=== PATIENT | female | born 1995 | race Caucasian/White ===

== ENCOUNTER 2018-02-13 03:56 | Emergency (ER) | payer MEDICAID, OTHER ==
[~2018-02-13] VITALS: Ht 170.2 cm; Wt 81.6 kg
[~2018-02-13 03:56] MED LIST: ACHD5005 PO; DCS100C PO; DOCU100C37 PO; FERR-57 PO; FRS325T PO; HYDR-2858 PO; HYDR99LO2 TP; IBP600T1 PO; IBUP-1773 PO; PREN1TAB71 PO; RT-ALBUINH IH
[2018-02-13] MEDS ORDERED: LACTATED RINGERS 1,000 ML IV ONE (04:32)
--- NOTE | 2018-02-13 04:41 | ED GI ---
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 NO BLACK/BLOODY/TARRY STOOLS NO FEVER NO DIZZINESS HAS NOT TAKEN ANYTHING FOR PAIN OR OTHER SYMPTOMS SEEN AT [facility] LAST WEEK FOR THIS PROBLEM PT STATES SHE WAS TOLD SHE "HAD INFECTION SOMEWHERE BUT THEY DIDN'T KNOW WHERE"- -STATES SHE HAD ELEVATED WBC COUNT, AND WAS GIVEN RX FOR UNKNOWN ANTIBIOTIC AND A PAIN PILL, BUT STATES SHE IS NOT TAKING THE PAIN PILL BECAUSE SHE HAS CHILDREN AT HOME. PT STATES SHE HAS NOT SOUGHT CARE AT ANY TIME FOR THIS PROBLEM LMP --02/04/18. NORMAL. ON OCP'S PCP: NONE PT STATES NO PCP, BUT HAS ESTABLISHED CARE AT [facility] Allergies and Home Medications Allergies Coded Allergies: Penicillins (Unverified Allergy, Unknown, 10/25/13) cefaclor (Unverified Allergy, Unknown, 10/25/13) Home Medications Ciprofloxacin HCl 500 Mg Tablet, 500 MG PO BID Prescribed by: DANIELLE GILMORE on 02/13/18653 Hyoscyamine Sulfate 0.125 Mg Tab.subl, 1-2 TAB SL Q4H Prescribed by: DANIELLE GILMORE on 02/13/18653 Lactobacillus Acidophilus 1 Each Capsule, 2 EACH PO QID Prescribed by: DANIELLE GILMORE on 02/13/18653 Metronidazole 500 Mg Tablet, 500 MG PO QID Prescribed by: DANIELLE GILMORE on 02/13/18653 Ondansetron 4 Mg Tab.rapdis, 4 MG PO Q4H Prescribed by: DANIELLE GILMORE on 02/13/18653 Patient Home Medication List Home Medication List Reviewed: Yes Review of Systems Review of Systems Constitutional: no symptoms reported Respiratory: No Symptoms Reported Cardiovascular: No Symptoms Reported Gastrointestinal: See HPI, Abdominal Pain, Diarrhea, Nausea, Poor Appetite, Poor Fluid Intake, Vomiting Genitourinary: No Symptoms Reported Musculoskeletal: no symptoms reported Skin: no symptoms reported Psychiatric/Neurological: No Symptoms Reported Endocrine: No Symptoms Reported Hematologic/Lymphatic: No Symptoms Reported Past Cxknjom-Ywbtto-Hmwayz Hx Patient Social History Alcohol Use: Rarely Uses Recreational Drug Use: Yes (THC, METH--DENIES IV USE) Drug of Choice: THC, METH, DENIES IV USE Smoking Status: Current Everyday Smoker (1 PPD) Type Used: Cigarettes (1 PPD) 2nd Hand Smoke Exposure: Yes Recent Foreign Travel: No Contact w/Someone Who Travel: No Recent Infectious Disease Expo: No Recent Hopitalizations: No Immunizations Up To Date Tetanus Booster (TDap): Less than 5yrs PED Vaccines UTD: Yes Seasonal Allergies Seasonal Allergies: No Past Medical History Surgeries: Yes ( X 1; BMT'S) Section, Ear Surgery Respiratory: Yes Asthma Cardiac: No Neurological: No : No Last Menstrual Period: Feb 10, 2018 Hx : 3 Hx Para: 4 (TWINSVAG DELIVERYC-SECTIONVBAC) Hx Total # of Abortions (Sp): 0 Reproductive Disorders: No Genitourinary: No Gastrointestinal: Yes Liver Disease/Jaundice, Irritable Bowel Musculoskeletal: Yes Chronic Back Pain Endocrine: No HEENT: Yes Chronic Ear Infection Loss of Vision: Denies Hearing Impairment: Denies Cancer: No Psychosocial: Yes (last suicide attempt "2 or 3 years ago") Anxiety, Suicide Attempts, Depression Integumentary: No Blood Disorders: No Adverse Reaction/Blood Tranf: No Family Medical History Cancer 19 MOTHER (MGM ) Chest pain 19 MOTHER Diabetes mellitus 19 MOTHER Family history: Allergy 19 MOTHER (PCN) Family history: Arthritis 19 FATHER 19 MOTHER Family history: Asthma 19 MOTHER Family history: Cardiovascular disease Family history: Diabetes mellitus 19 FATHER (MGM) 19 MOTHER Family history: Hypertension 19 FATHER 19 MOTHER History of - respiratory disease 19 MOTHER (asthma) Hypercholesterolemia 19 FATHER 19 MOTHER Kidney disease 19 FATHER (MGM) Psychotic disorder 19 MOTHER No Family History of: Abdominal aortic aneurysm Dougherty's disease Alcoholism Aphasia Cancer of colon Cataract Congenital heart disease Congestive heart failure Cystic fibrosis Dementia Dysphagia Family history: Alzheimer's disease Family history: Breast disease Family history: Coronary thrombosis Family history: Gastrointestinal disease Family history: Glaucoma Family history: Osteoporosis Family history: Thyroid disorder Headache Hearing loss Heart disease Hereditary disease History of - anemia History of - disorder History of drug abuse Human immunodeficiency virus (HIV) seropositivity Infertile Malignant neoplasm of lung Myocardial infarction Parkinson's disease Prostate cancer Seizure disorder Stroke Tuberculosis Visual impairment Physical Exam Vital Signs Vital Signs - First Documented 02/13/18 04:05 Temp 97.9 Pulse 56 Resp 18 B/P (MAP) 121/72 (88) Pulse Ox 100 O2 Delivery Room Air Capillary Refill : Less Than 3 Seconds Height/Weight/BMI Height: 5'7.00" Weight: 180lbs. oz. 81.676799pz; 34.30 BMI Method:Stated General Appearance: WD/WN, no apparent distress, other (WALKS UPRIGHT AND MOVES WITHOUT DIFFICULTY. TEXTING/PLAYING ON PHONE, THEN WHEN STAFF IN ROOM SHE STARTS HOLDING RIGHT FLANK/MID ABDOMEN; WALKS UPRIGHT AND MOVES QUICKLY WITHOUT DIFFICULTY. ) Neck: normal inspection Respiratory: normal breath sounds, no respiratory distress, no accessory muscle use Cardiovascular: regular rate, rhythm, no murmur Gastrointestinal: normal bowel sounds, soft, no organomegaly, no pulsatile mass ; No distended, No guarding, No rebound; tenderness (DIFFUSE TENDERNESS, BUT MOST TENDER ALL ACROSS LOWER ABDOMEN); No hernia, No mass Extremities: normal inspection, no pedal edema, no calf tenderness, normal capillary refill Back: CVA tenderness (R) Neurologic/Psychiatric: ambulance officer II-XII nml as tested, no motor/sensory deficits, alert, normal mood/affect, oriented x 3 Skin: normal color, warm/dry; No rash Progress/Results/Core Measures Results/Orders Lab Results Laboratory Tests Test 02/13/18 04:40 Range/Units White Blood Count 12.3 H 4.3-11.0 10^3/uL Red Blood Count 4.34 L 4.35-5.85 10^6/uL Hemoglobin 11.9 11.5-16.0 G/DL Hematocrit 36 35-52 % Mean Corpuscular Volume 83 80-99 FL Mean Corpuscular Hemoglobin 27 25-34 PG Mean Corpuscular Hemoglobin Concent 33 32-36 G/DL Red Cell Distribution Width 14.2 10.0-14.5 % Platelet Count 484 H 130-400 10^3/uL Mean Platelet Volume 9.7 7.4-10.4 FL Neutrophils (%) (Auto) 49 42-75 % Lymphocytes (%) (Auto) 41 12-44 % Monocytes (%) (Auto) 5 0-12 % Eosinophils (%) (Auto) 4 0-10 % Basophils (%) (Auto) 1 0-10 % Neutrophils # (Auto) 6.1 1.8-7.8 X 10^3 Lymphocytes # (Auto) 5.0 H 1.0-4.0 X 10^3 Monocytes # (Auto) 0.6 0.0-1.0 X 10^3 Eosinophils # (Auto) 0.5 H 0.0-0.3 10^3/uL Basophils # (Auto) 0.1 0.0-0.1 10^3/uL Urine Color YELLOW Urine Clarity CLEAR Urine pH 5 5-9 Urine Specific [place] 1.025 H 1.016-1.022 Urine Protein 1+ H NEGATIVE Urine Glucose (UA) NEGATIVE NEGATIVE Urine Ketones NEGATIVE NEGATIVE Urine Nitrite NEGATIVE NEGATIVE Urine Bilirubin NEGATIVE NEGATIVE Urine Urobilinogen NORMAL NORMAL MG/DL Urine Leukocyte Esterase NEGATIVE NEGATIVE Urine RBC (Auto) NEGATIVE NEGATIVE Urine RBC NONE /HPF Urine WBC RARE /HPF Urine Squamous Epithelial Cells 2-5 /HPF Urine Crystals NONE /LPF Urine Bacteria TRACE /HPF Urine Casts NONE /LPF Urine Mucus SMALL H /LPF Urine Culture Indicated NO Sodium Level 138 135-145 MMOL/L Potassium Level 3.5 L 3.6-5.0 MMOL/L Chloride Level 109 H 98-107 MMOL/L Carbon Dioxide Level 21 21-32 MMOL/L Anion Gap 8 5-14 MMOL/L Blood Urea Nitrogen 13 7-18 MG/DL Creatinine 0.66 0.60-1.30 MG/DL Estimat Glomerular Filtration Rate > 60 BUN/Creatinine Ratio 20 Glucose Level 93 70-105 MG/DL Calcium Level 9.6 8.5-10.1 MG/DL Corrected Calcium 9.4 8.5-10.1 MG/DL Magnesium Level 2.3 1.8-2.4 MG/DL Total Bilirubin 0.2 0.1-1.0 MG/DL Aspartate Amino Transf (AST/SGOT) 17 5-34 U/L Alanine Aminotransferase (ALT/SGPT) 20 0-55 U/L Alkaline Phosphatase 71 40-136 U/L Total Protein 7.1 6.4-8.2 GM/DL Albumin 4.3 3.2-4.5 GM/DL Amylase Level 62 25-125 U/L Lipase 40 8-78 U/L Urine Opiates Screen NEGATIVE NEGATIVE Urine Oxycodone Screen NEGATIVE NEGATIVE Urine Methadone Screen NEGATIVE NEGATIVE Urine Propoxyphene Screen NEGATIVE NEGATIVE Urine Barbiturates Screen NEGATIVE NEGATIVE Ur Tricyclic Antidepressants Screen NEGATIVE NEGATIVE Urine Phencyclidine Screen NEGATIVE NEGATIVE Urine Amphetamines Screen NEGATIVE NEGATIVE Urine Methamphetamines Screen NEGATIVE NEGATIVE Urine Benzodiazepines Screen NEGATIVE NEGATIVE Urine Cocaine Screen NEGATIVE NEGATIVE Urine Cannabinoids Screen NEGATIVE NEGATIVE My Orders Orders - DANIELLE GILMORE DO Saline Lock/Iv-Start (02/13/18 04:32) Urine Bedside (02/13/18 04:32) Amylase (02/13/18 04:32) Cbc With Automated Diff (02/13/18 04:32) Comprehensive Metabolic Panel (02/13/18 04:32) Drug Screen Stat (Urine) (02/13/18 04:32) Lipase (02/13/18 04:32) Magnesium (02/13/18 04:32) Ua Culture If Indicated (02/13/18 04:32) Saline Lock/Iv-Start (02/13/18 04:32) Lactated Ringers (Lr 1000 Ml Iv Solution (02/13/18 04:32) Ondansetron Injection (Zofran Injectio (02/13/18 04:45) Ct Abd/Pelv W (Appendicitis) (02/13/18 05:11) Abdomen/Kub 1view (02/13/18 05:11) Iohexol Injection (Omnipaque 350 Mg/Ml 1 (02/13/18 06:30) Sodium Chloride Flush (Catheter Flush Sy (02/13/18 06:30) Medications Given in ED Current Medications Medications Dose Ordered Sig/Jan Route Start Time Stop Time Status Last Admin Dose Admin Iohexol 100 ml ONCE ONCE IV 02/13/18 06:30 02/13/18 06:31 DC 02/13/18 06:19 100 ML Lactated Ringer's 1,000 ml @ 0 mls/hr Q0M ONCE IV 02/13/18 04:32 02/13/18 04:34 DC 02/13/18 04:49 0 MLS/HR Ondansetron HCl 4 mg ONCE ONCE IVP 02/13/18 04:45 02/13/18 04:46 DC 02/13/18 04:44 4 MG Sodium Chloride 10 ml NEEDED PRN IV 02/13/18 06:30 02/13/18 06:19 10 ML Vital Signs/I&O 02/13/18 04:05 Temp 97.9 Pulse 56 Resp 18 B/P (MAP) 121/72 (88) Pulse Ox 100 O2 Delivery Room Air Blood Pressure Mean: 88 Progress Progress Note : Progress Note UNEVENTFUL ER STAY NO VOMITING OR DIARRHEA DURING ER STAY Diagnostic Imaging Comments ABDOMEN XRAYS--NO ACUTE PROCESS, PENDING RADIOLOGIST REVIEW CT ABDOMEN/PELVIS--HEPATOMEGALY, MILD PERIPORTAL EDEMA, FLUID THROUGHOUT SMALL BOWEL WITH MILDLY PROMINENT MESENTERIC LYMPH NODES WHICH MAY REPRESENT MILD INFECTIOUS OR INFLAMMATORY ENTERITIS --PER [facility] VIA FAX AT 0635 Reviewed: Reviewed by Me Departure Impression Primary Impression: Mesenteric adenitis Additional Impression: Nausea vomiting and diarrhea Disposition: HOME, SELF-CARE Condition: Stable Departure-Patient Inst. Referrals: RAFI IRENE DO (PCP/Family) Primary Care Physician Patient Instructions: [id number], Mesenteric Lymphadenitis (DC) Add. Discharge Instructions: CLEAR LIQUIDS--WATER, BROTH, JELLO, GATORADE BRATS DIET --BANANAS, RICE, APPLESAUCE, TOAST, SALTINES FOLLOW UP WITH [facility] [place] THIS WEEK FOR FURTHER CARE All discharge instructions reviewed with patient and/or family. Voiced understanding. Scripts Ondansetron (Zofran Odt) 4 Mg Tab.rapdis 4 MG PO Q4H for Nausea/Vomiting, #10 TAB Prov: DANIELLE GILMORE DO 02/13/18 Hyoscyamine Sulfate (Levsin-Sl) 0.125 Mg Tab.subl 1-2 TAB SL Q4H for Abdominal Pain, #15 TAB Prov: DANIELLE GILMORE DO 02/13/18 Metronidazole (Flagyl) 500 Mg Tablet 500 MG PO QID for FOR INFECTION, #40 TAB Prov: DANIELLE GILMORE DO 02/13/18 Ciprofloxacin HCl (Cipro) 500 Mg Tablet 500 MG PO BID, #20 TAB Prov: DANIELLE GILMORE DO 02/13/18 Lactobacillus Acidophilus (Acidophilus) 1 Each Capsule 2 EACH PO QID, #80 CAP Prov: DANIELLE GILMORE DO 02/13/18 DANIELLE GILMORE DO Feb 13, 2018 04:41
[2018-02-13] MEDS ORDERED: ONDANSETRON 4 MG/2 ML (SDV) Z0FRAN IVP ONE (04:45)
[2018-02-13 04:53] LABS: BASOPHILS # (AUTO) 0.1 10^3/uL (0.0-0.1); BASOPHILS % (AUTO) 1 % (0-10); BILIRUBIN,URINE NEGATIVE (NEGATIVE); CLARITY,URINE CLEAR; COLOR,URINE YELLOW; EOSINOPHILS # (AUTO) 0.5 10^3/uL (0.0-0.3); EOSINOPHILS % (AUTO) 4 % (0-10); GLUCOSE, URINE (UA) NEGATIVE (NEGATIVE); HEMATOCRIT 36 % (35-52); HEMOGLOBIN 11.9 G/DL (11.5-16.0); KETONES,URINE NEGATIVE (NEGATIVE); LEUKOCYTE ESTERASE ,URINE NEGATIVE (NEGATIVE); LYMPHOCYTES % (AUTO) 41 % (12-44); MEAN CORPUSCULAR HEMOGLOBIN 27 PG (25-34); MEAN CORPUSCULAR HGB CONC 33 G/DL (32-36); MEAN CORPUSCULAR VOLUME 83 FL (80-99); MEAN PLATELET VOLUME 9.7 FL (7.4-10.4); MONOCYTES # (AUTO) 0.6 X 10^3 (0.0-1.0); MONOCYTES % (AUTO) 5 % (0-12); NEUTROPHILS # (AUTO) 6.1 X 10^3 (1.8-7.8); NEUTROPHILS % (AUTO) 49 % (42-75); NITRITE,URINE NEGATIVE (NEGATIVE); PH,URINE 5 (5-9); PLATELET COUNT 484 10^3/uL (130-400); PROTEIN,URINE 1+ (NEGATIVE); RED BLOOD COUNT 4.34 10^6/uL (4.35-5.85); RED CELL DISTRIBUTION WIDTH 14.2 % (10.0-14.5); UROBILINOGEN,URINE NORMAL (NORMAL); WHITE BLOOD COUNT 12.3 10^3/uL (4.3-11.0)
[2018-02-13 05:00] LABS: BACTERIA,URINE TRACE /HPF; WBC,URINE RARE /HPF
[2018-02-13 05:03] LABS: AMPHETAMINE SCREEN, URINE NEGATIVE (NEGATIVE); BARBITURATE SCREEN URINE NEGATIVE (NEGATIVE); BENZODIAZEPINES SCREEN URINE NEGATIVE (NEGATIVE); CANNABINOID SCREEN, URINE NEGATIVE (NEGATIVE); COCAINE SCREEN URINE NEGATIVE (NEGATIVE); METHADONE STAT NEGATIVE (NEGATIVE); METHAMPHETAMINE SCREEN URINE S NEGATIVE (NEGATIVE); OPIATE SCREEN URINE NEGATIVE (NEGATIVE); OXYCODONE STAT NEGATIVE (NEGATIVE); PROPOXYPHENE STAT NEGATIVE (NEGATIVE); TRICYCLIC ANTIDEPRESSANTS SCRE NEGATIVE (NEGATIVE)
[2018-02-13 05:15] LABS: ALANINE AMINOTRANSFERASE 20 U/L (0-55); ALBUMIN 4.3 GM/DL (3.2-4.5); ALKALINE PHOSPHATASE 71 U/L (40-136); AMYLASE 62 U/L (25-125); BILIRUBIN,TOTAL 0.2 MG/DL (0.1-1.0); BUN/CREATININE RATIO 20; CALCIUM 9.6 MG/DL (8.5-10.1); CARBON DIOXIDE 21 MMOL/L (21-32); CHLORIDE 109 MMOL/L (98-107); CREATININE SERUM 0.66 MG/DL (0.60-1.30); GFR ESTIMATED > 60; GLUCOSE 93 MG/DL (70-105); LIPASE 40 U/L (8-78); MAGNESIUM 2.3 MG/DL (1.8-2.4); POTASSIUM 3.5 MMOL/L (3.6-5.0); SODIUM 138 MMOL/L (135-145); TOTAL PROTEIN 7.1 GM/DL (6.4-8.2)
[2018-02-13] MEDS ORDERED: IOHEXOL 350 MG/ML 100 ML (OMNIPAQUE 350) VIAL IV ONE (06:30)
[2018-02-13] MEDS ORDERED: CATHETER FLUSH 10 ML SYR IV PRN (06:30)
--- NOTE | 2018-02-13 06:37 | Diagnostic Imaging Report ---
Clinical indication: Patient with nausea, vomiting, and diarrhea x6 weeks. Exam: KUB x-ray. Comparison: None. Findings: There are no focal calcifications overlying the expected regions/ pathways of both kidneys, ureters, and bladder regions. There is a nonobstructed bowel gas pattern. There is no evidence of abdominal free air. The visualized bones and extra abdominal soft tissues are unremarkable. Impression: There is no radiographic evidence for acute abdominal/ pelvic process or urinary tract stones. Dictated by: Dictated on workstation # [id number]
[2018-02-13] MEDS ORDERED: METR500T PO (06:54)
[2018-02-13] MEDS ORDERED: CIPR-225 PO (06:54)
[2018-02-13] MEDS ORDERED: LACT1CAP8 PO (06:54)
[2018-02-13] MEDS ORDERED: ONDA4TAB8 PO (06:54)
[2018-02-13] MEDS ORDERED: HYOS0.1283 SL (06:54)
[2018-02-13 06:59] VITALS: BP 114/58
--- NOTE | 2018-02-13 07:33 | Diagnostic Imaging Report ---
PROCEDURE: CT abdomen and pelvis with contrast, rule out appendicitis. TECHNIQUE: Multiple contiguous axial images were obtained through the abdomen and pelvis after the administration of intravenous contrast. INDICATION: Nausea, vomiting and diarrhea. No prior examinations are available for comparison. FINDINGS: Heart size is normal. Lung bases are clear. There is hepatomegaly. There is a heterogeneous appearance of liver with some periportal edema. There is no biliary ductal dilatation. There is no cholelithiasis. Spleen is normal. The pancreas and adrenal glands are unremarkable. Kidneys are normal in appearance. The bowel gas pattern is nonspecific. There is no free air. There is no ascites. There are no focal inflammatory changes. Appendix is normal. Bladder is normal. The osseous structures are unremarkable. IMPRESSION: Hepatomegaly and heterogeneous appearance of liver with some periportal edema. Recommend correlation for hepatitis. No other acute abnormality in the abdomen or pelvis. Dictated by: Dictated on workstation # [id number]
== END 2018-02-13 06:56 | disposition home or self-care (01) ==
LOC: EDUNIT# 03:56 → ER 03:57
DX: I88.0 Nonspecific mesenteric lymphadenitis (principal); R11.2 Nausea with vomiting, unspecified; R19.7 Diarrhea, unspecified; J45.909 Unspecified asthma, uncomplicated; F12.10 Cannabis abuse, uncomplicated; F15.10 Other stimulant abuse, uncomplicated; F41.9 Anxiety disorder, unspecified; F32.9 Major depressive disorder, single episode, unspecified; F17.210 Nicotine dependence, cigarettes, uncomplicated; Z98.890 Other specified postprocedural states; Z91.5 Personal history of self-harm; Z87.19 Personal history of other diseases of the digestive system; Z88.0 Allergy status to penicillin; Z88.8 Allergy status to other drugs, medicaments and biological substances; Z82.49 Family history of ischemic heart disease and other diseases of the circulatory system
CPT/HCPCS: 36415; 74018; 74177; 80053; 80306; 81000; 82150; 83690; 83735; 84703; 85025; 96361; 96374

== ENCOUNTER → 2019-01-02 | Outpatient (CLI) | payer MEDICAID ==
[~2019-01-02] MED LIST changes: +CIPR-225 PO; +HYOS0.1283 SL; +LACT1CAP8 PO; +METR500T PO; +ONDA4TAB8 PO
--- NOTE | 2019-01-02 11:51 | Diagnostic Imaging Report ---
INDICATION: survey. TECHNIQUE: Multiple real-time grayscale images were obtained over the gravid uterus. COMPARISON: There are no prior studies available for comparison. FINDINGS: There is a single live fetus in transverse presentation. heart motion was noted, and a date of 136 BPM was recorded. There were no abnormalities identified. However, the spine was not well visualized due to lie. I would recommend that a short-term (2-4 week) followup exam be performed for further study. The placenta is anterior, and there is no previa. The amniotic fluid volume is within normal limits. The growth parameters are fairly uniform. The cervix was not particularly well visualized but measures only 2.9 cm (normal 3 cm or less). Biometrical measurements are as follows: Biparietal 5.88 cm, age 24 weeks 1 days. Head circumference 22.59 cm, age 24 weeks 5 days. Abdominal circumference 20.52 cm, age 25 weeks 1 days. Femur length 4.12 cm, age 23 weeks 3 days. Sonographic estimate age: 24 weeks 3 days. Sonographic estimated date of delivery: 04/21/2019. Estimated Weight: 689 gm (+/- 101 gm). LMP percentile: 85%. heart rate: 136 beats per minute. number: 1 of 1. IMPRESSION: 1. There is a single live fetus of approximately 24 weeks 3 days gestation, +/-2 weeks. The EDC is April 21, 2019. 2. There were no abnormalities identified, but the spine was not well visualized. Recommendations as above. 3. The growth parameters are fairly uniform. 4. The length of the cervix is just below normal limits. Dictated by: Dictated on workstation # [id number]
== END ==
LOC: RAD 09:59
PROVIDERS: ATTEND Obstetrics & Gynecology
DX: Z36.89 Encounter for other specified antenatal screening (principal); Z3A.24 24 weeks gestation of pregnancy
CPT/HCPCS: 76805

== ENCOUNTER 2019-04-18 05:36 | Outpatient (CLI) | payer MEDICAID ==
[~2019-04-18] VITALS: Ht 170 cm; Wt 82.7 kg
[2019-04-18] MEDS ORDERED: FERR-84 PO (12:01)
[2019-04-18] MEDS ORDERED: PREN-8 PO (12:01)
== END 2019-04-18 12:31 | disposition home or self-care (01) ==
LOC: PREOP 05:36
PROVIDERS: ATTEND Obstetrics & Gynecology
DX: Z01.818 Encounter for other preprocedural examination (principal)

== ENCOUNTER 2019-04-23 06:04 | Inpatient (IN) | payer MEDICAID ==
[2019-04-23] VITALS (8 sets, daily range): BP systolic 104–137; BP diastolic 50–71
[~2019-04-23] VITALS: Ht 170.2 cm; Wt 83.0 kg
[~2019-04-23 06:04] MED LIST changes: +CITRIC ACID/SOB CIT (BICITRA) 30 ML UDC ONE; +FAMOTIDINE 20MG/2ML IV (PEPCID) ONE; +FERR-84 PO; +METOCLOPRAMIDE INJ 10 MG/2 ML (REGLAN) ONE; +PREN-8 PO; +WATER (STERILE) FOR INJECTION 20 ML ONE; +ceFAZolin INJECTION 1,000 MG ONE
[2019-04-23] MEDS ORDERED: LACTATED RINGERS 1,000 ML IV SCH ×2 (06:14)
[2019-04-23] MEDS ORDERED: CITRIC ACID/SOB CIT (BICITRA) 30 ML UDC PO ONE (06:15)
[2019-04-23] MEDS ORDERED: METOCLOPRAMIDE INJ 10 MG/2 ML (REGLAN) IV ONE (06:15)
[2019-04-23] MEDS ORDERED: FAMOTIDINE 20MG/2ML IV (PEPCID) IV ONE (06:15)
--- NOTE | 2019-04-23 06:15 | NUR ---
HUBERT GOODWIN presented to unit via ambulation from home/ED, accompanied by SO, for repeat csection. HUBERT GOODWIN weighed, gowned, voided, and to bed. EFHM and TOCO applied, VS taken. HUBERT GOODWIN oriented to bed controls, call light, TV, heat, and A/C controls.
[2019-04-23] MEDS ORDERED: ceFAZolin INJECTION 1,000 MG in WATER (STERILE) FOR INJECTION 10 ML IV ONE (06:30)
[2019-04-23 06:46] LABS: BILIRUBIN,URINE NEGATIVE (NEGATIVE); CLARITY,URINE CLEAR; COLOR,URINE YELLOW; GLUCOSE, URINE (UA) NEGATIVE (NEGATIVE); KETONES,URINE TRACE (NEGATIVE); LEUKOCYTE ESTERASE ,URINE NEGATIVE (NEGATIVE); NITRITE,URINE NEGATIVE (NEGATIVE); PH,URINE 6.5 (5-9); PROTEIN,URINE NEGATIVE (NEGATIVE)
[2019-04-23 06:52] LABS: BASOPHILS # (AUTO) 0.1 10^3/uL (0.0-0.1); BASOPHILS % (AUTO) 0 % (0-10); EOSINOPHILS # (AUTO) 0.5 10^3/uL (0.0-0.3); EOSINOPHILS % (AUTO) 3 % (0-10); HEMATOCRIT 33 % (35-52); HEMOGLOBIN 10.7 G/DL (11.5-16.0); LYMPHOCYTES # (AUTO) 3.2 X 10^3 (1.0-4.0); LYMPHOCYTES % (AUTO) 23 % (12-44); MEAN CORPUSCULAR HEMOGLOBIN 28 PG (25-34); MEAN CORPUSCULAR HGB CONC 33 G/DL (32-36); MEAN CORPUSCULAR VOLUME 86 FL (80-99); MEAN PLATELET VOLUME 10.8 FL (7.4-10.4); MONOCYTES # (AUTO) 0.9 X 10^3 (0.0-1.0); MONOCYTES % (AUTO) 6 % (0-12); NEUTROPHILS # (AUTO) 9.4 X 10^3 (1.8-7.8); NEUTROPHILS % (AUTO) 67 % (42-75); PLATELET COUNT 416 10^3/uL (130-400); RED CELL DISTRIBUTION WIDTH 13.5 % (10.0-14.5)
[2019-04-23 07:04] LABS: BACTERIA,URINE NEGATIVE /HPF; WBC,URINE 0-2 /HPF
[2019-04-23] MEDS ORDERED: FLU QUADRIvalent (5+ YOA) 2019-2020 (AFLURIA) 0.5 ML IM ONE (07:15)
[2019-04-23] MEDS ORDERED: OXYTOCIN/NORMAL SALINE 1,000 ML IV ONE (07:28)
--- NOTE | 2019-04-23 07:28 | NUR ---
REPORT TO SURGERY RN.
[2019-04-23] MEDS ORDERED: fentaNYL INJECTION 100 MCG/2 ML AMP ONE (07:34)
[2019-04-23] MEDS ORDERED: LIDOCAINE PF 2% 5 ML (XYLOCAINE) VIAL ONE (07:34)
[2019-04-23] MEDS ORDERED: BUPIVACAINE SPINAL 0.75% (SENSORCAINE) 2 ML AMP ONE (07:34)
[2019-04-23] MEDS ORDERED: CLINDAMYCIN 600 MG/50 ML IVPB 50 ML IV ONE ×2 (07:37→14:00)
--- NOTE | 2019-04-23 07:37 | NUR ---
DR BRANTLEY HERE.
--- NOTE | 2019-04-23 07:42 | Progress Note-Pre Operative ---
Pre-Operative Progress Note H&P Reviewed The H&P was reviewed, patient examined and no changes noted. Date Seen by Provider: Apr 23, 2019 Time Seen by Provider: 07:30 Date H&P Reviewed: Apr 23, 2019 Time H&P Reviewed: 07:35 Pre-Operative Diagnosis: PRevious section NICOLETTE BRANTLEY DO Apr 23, 2019 07:42 POS
[2019-04-23] MEDS ORDERED: KETOROLAC 30 MG/ML VIAL ONE (08:16)
[2019-04-23] MEDS ORDERED: BUPIVACAINE 0.5% 30 ML (SENSORCAINE) VIAL ONE (08:26)
[2019-04-23] MEDS ORDERED: OXYTOCIN/NORMAL SALINE 500 ML IV SCH (08:59)
[2019-04-23] MEDS ORDERED: TETANUS,DIPTH,PERTUSS P/F (BOOSTRIX) 0.5 ML VIAL IM SCH (09:00)
[2019-04-23] MEDS ORDERED: DOCUSATE SODIUM 100 MG (COLACE) CAP PO SCH (09:00)
[2019-04-23] MEDS ORDERED: morphine INJ 4 MG/ML 1 ML (VIAL/SYRINGE) IVP PRN (09:00)
[2019-04-23] MEDS ORDERED: MEASLES,MUMPS,RUBELLA 1 EA INJ SC SCH (09:00)
--- NOTE | 2019-04-23 09:03 | Cesarean Section Operative ---
Procedure Procedure Note Pre-operative Diagnosis: Sarah saenz a (25 /Para 5/ 3104, Gestational Age (wks)39 2/7 weeks with history of previous section Post-operative Diagnosis: same []4 Procedure: [] low transverse section Physician: NICOLETTE BRANTLYE Gift Shop Assistant: [] Estimated blood loss: mL Disposition: Findings: Viable [=male infant, Apgars 8/9, weight 6#6ounces intact placenta, 3vc, normal appearing uterus, tubes, and ovaries. Indications:Sarah saenz a (25 /Para / ,Gestational Age (wks)39 presenting for []. Procedure Details: The patient was seen in pre-op and the procedure was discussed with the patient in full, including the risks, benefits, and alternatives. All questions were answered. The patient was taken to the operating room and a time out was perf ormed, verifying patient and procedure. After spinal anesthesia was placed by our anesthesia colleagues, the patient was placed in the dorsal supine with leftward tilt for uterine displacement.~ Her abdomen was then prepped and draped in the typical sterile fashion. A Pfannenstiel skin incision was made using a scalpel and carried down through the underlying fascia. The fascia was incised in the midline and tented up using Alex clamps. On both the inferior and superior fascia side the rectus muscle was dissected off bluntly and sharply using Ritchie scissors. The peritoneum was identified and entered bluntly in the midline. This was then stretched laterally using manual strength. After entering the abdominal cavity and confirming lack of intraperitoneal adhesions, a large Ralph retractor was placed and the lower uterine segment was visualized. A bladder flap was created with the use of Metzenbaum scissors.~ A scalpel was utilized to make a low transverse uterine incision. Amniotomy was performed with an Allis clamp with return of clear fluid. The 's head was grasped and brought to the level of the incision. Fundal pressure was applied and was delivered without difficulty. Mouth and nares were suctioned with bulb suction. After the umbilical cord was clamped and cut, the infant was handed off to the pediatric staff. A sample of cord blood was then obtained. The placenta was delivered intact via uterine massage. The uterus was exteriorized and cleared of all clots and debris. The uterine incision was closed using 0 Vicryl in a running locked fashion. A second imbricated layer was placed using 0 Vicryl in a running fashion as well. The uterus was flexed forward and the posterior rectouterine space was inspected and cleared of all clots and debris. Again the hysterotomy site was examined and hemostasis was observed. The bilateral tubes and ovaries appeared normal. The uterus was placed back into the abdominal cavity and abdominal gutters were cleared of all clots and debris. A final check of the uterine incision showed it to be hemostatic. The peritoneum was closed using 3-0 Vicryl in a running fashion. The fascia was closed with 0 Vicryl in a running fashion. The subcutaneous space was hemostatic, and irrigated. The subcutaneous space was closed with 3-0 Vicryl in several single interrupted stitches. The skin was then closed using 4-0 Monocryl in a running subcuticular fashion. The skin edges were reapproximated together and were hemostatic. A pressure dressing was applied. All sponge, lap and needle counts were correct at the end of the procedure per nursing. Vitals - Labs Vital Signs - I&O Vital Signs Date Time Temp Pulse Resp B/P (MAP) Pulse Ox O2 Delivery O2 Flow Rate FiO2 04/23/19 07:00 36.8 81 18 99 Room Air Labs Laboratory Tests 04/23/19 06:18: Urine Color YELLOW, Urine Clarity CLEAR, Urine pH 6.5, Urine Specific [place] 1.015L, Urine Protein NEGATIVE, Urine Glucose (UA) NEGATIVE, Urine Ketones TRACEH, Urine Nitrite NEGATIVE, Urine Bilirubin NEGATIVE, Urine Urobilinogen 0.2, Urine Leukocyte Esterase NEGATIVE, Urine RBC (Auto) NEGATIVE, Urine RBC NONE, Urine WBC 0-2, Urine Squamous Epithelial Cells 2-5, Urine Crystals NONE, Urine Bacteria NEGATIVE, Urine Casts NONE, Urine Mucus NEGATIVE, Urine Culture Indicated NO 04/23/19 06:42: White Blood Count 14.0H, Red Blood Count 3.81L, Hemoglobin 10.7L, Hematocrit 33L , Mean Corpuscular Volume 86, Mean Corpuscular Hemoglobin 28, Mean Corpuscular Hemoglobin Concent 33, Red Cell Distribution Width 13.5, Platelet Count 416H, Mean Platelet Volume 10.8H, Neutrophils (%) (Auto) 67, Lymphocytes (%) (Auto) 23, Monocytes (%) (Auto) 6, Eosinophils (%) (Auto) 3, Basophils (%) (Auto) 0, Neutrophils # (Auto) 9.4H, Lymphocytes # (Auto) 3.2, Monocytes # (Auto) 0.9, Eosinophils # (Auto) 0.5H, Basophils # (Auto) 0.1 NICOLETTE BRANTLEY DO Apr 23, 2019 09:03 POS
[2019-04-23] MEDS: KETOROLAC 30 MG/ML VIAL IV SCH ×3 (09:34→22:38)
--- NOTE | 2019-04-23 10:00 | NUR ---
NO CHANGE IN ASSESSMENT, PLAN OF CARE EXPLAINED, NO QUESTIONS NOTED, VSS, PTS S/O AT SIDE, IN OPEN CRIB AT SIDE WILL MONITOR.
--- NOTE | 2019-04-23 10:20 | NUR ---
RT HERE AT PTS BEDSIDE.
[2019-04-23] MEDS ORDERED: RT-ALBUTEROL SULF 2.5 MG/3 ML PRE-MIX VIAL ONE (10:22)
[2019-04-23] MEDS: RT-ALBUTEROL SULF 2.5 MG/3 ML PRE-MIX VIAL INH PRN ×2 (10:31→22:56)
--- NOTE | 2019-04-23 11:30 | NUR ---
LIZZ-CARE COMPLETED, PAD AND PANTIES CHANGED, FFU/1 LT LOCHIA NOTED, PT REPOSITIONED IN BED, VSS, PT REQUESTING PAIN MEDS. SCHEDULED COLACE GIVEN AND OXYCODONE 5MG PO, SEE AUG.
[2019-04-23] MEDS: DOCUSATE SODIUM 100 MG (COLACE) CAP PO SCH ×2 (11:34→20:32)
[2019-04-23] MEDS ORDERED: IBUPROFEN 600 MG (MOTRIN) TAB PO SCH (12:00)
[2019-04-23] MEDS: ACETAMINOPHEN 500 MG TAB (TYLENOL) PO SCH ×2 (15:01→22:38)
[2019-04-23] MEDS: CATHETER FLUSH 10 ML SYR IV SCH ×2 (16:54→22:38)
[2019-04-23] MEDS: FERROUS SULF 325 MG (IRON) TAB PO SCH (18:07)
[2019-04-24 00:35] VITALS: BP 124/68
[2019-04-24 03:55] VITALS: BP 126/71
[2019-04-24] MEDS: KETOROLAC 30 MG/ML VIAL IV SCH (03:55)
[2019-04-24] MEDS: CATHETER FLUSH 10 ML SYR IV SCH (03:55)
[2019-04-24] MEDS ORDERED: MILK OF MAGNESIA 400 MG/5 ML 30 ML UDC PO PRN (05:00)
[2019-04-24 06:12] LABS: BASOPHILS % (AUTO) 0 % (0-10); EOSINOPHILS # (AUTO) 0.5 10^3/uL (0.0-0.3); EOSINOPHILS % (AUTO) 3 % (0-10); HEMATOCRIT 30 % (35-52); HEMOGLOBIN 9.6 G/DL (11.5-16.0); LYMPHOCYTES # (AUTO) 3.2 X 10^3 (1.0-4.0); LYMPHOCYTES % (AUTO) 20 % (12-44); MEAN CORPUSCULAR HEMOGLOBIN 28 PG (25-34); MEAN CORPUSCULAR HGB CONC 33 G/DL (32-36); MEAN CORPUSCULAR VOLUME 87 FL (80-99); MEAN PLATELET VOLUME 10.4 FL (7.4-10.4); MONOCYTES # (AUTO) 1.2 X 10^3 (0.0-1.0); MONOCYTES % (AUTO) 7 % (0-12); NEUTROPHILS # (AUTO) 11.1 X 10^3 (1.8-7.8); NEUTROPHILS % (AUTO) 69 % (42-75); PLATELET COUNT 391 10^3/uL (130-400); RED CELL DISTRIBUTION WIDTH 13.2 % (10.0-14.5)
[2019-04-24] MEDS: ACETAMINOPHEN 500 MG TAB (TYLENOL) PO SCH ×3 (06:29→21:47)
--- NOTE | 2019-04-24 07:08 | Anesthesia-Regional Post-Op ---
Regional Patient Condition Mental Status: Alert, Oriented x3 Circulation: Same as Pre-Op Headache: Absent Sensation: Full Recovery Motor Block: Absent Post Op Complications Complications None Follow Up Care/Instructions Patient Instructions None needed. Anesthesia/Patient Condition Patient is doing well, no complaints, stable vital signs, no apparent adverse anesthesia problems. No complications reported per nursing. D/C home per [facility] Criteria: No RENEE THOMPSON CRNA Apr 24, 2019 07:08 POS
--- NOTE | 2019-04-24 08:36 | NUR ---
PT IN BED, RESTING. THIS RN TO BEDSIDE, SELF INTRODUCED, POC CARE DISCUSSED; PT VERBALIZES UNDERSTANDING AND DENIES ANY NEEDS OR QUESTIONS AT THIS TIME. S/O AT THE BEDSIDE. CALL LIGHT WITHIN REACH.
[2019-04-24 10:08] VITALS: BP 114/59
[2019-04-24] MEDS: FERROUS SULF 325 MG (IRON) TAB PO SCH ×2 (10:09→18:00)
[2019-04-24] MEDS: DOCUSATE SODIUM 100 MG (COLACE) CAP PO SCH ×2 (10:10→19:49)
[2019-04-24] MEDS: IBUPROFEN 600 MG (MOTRIN) TAB PO SCH ×3 (10:10→21:47)
--- NOTE | 2019-04-24 10:15 | NUR ---
PT IN BED, HOLDING . MEDS GIVEN PO; SEE EMAR FOR FURTHER. VS OBTAINED. INITIAL SHIFT ASSESSMENT COMPLETED; SEE INTERVENTION FOR FURTHER. S/O AT THE BEDSIDE. PT DENIES ANY QUESTIONS OR NEEDS AT THIS TIME.
--- NOTE | 2019-04-24 12:07 | NUR ---
DR. BRANTLEY TO PT'S BEDSIDE.
[2019-04-24 16:34] VITALS: BP 121/59
[2019-04-24 21:47] VITALS: BP 137/68
[2019-04-25 04:56] VITALS: BP 116/72
[2019-04-25] MEDS: IBUPROFEN 600 MG (MOTRIN) TAB PO SCH ×2 (04:56→11:11)
[2019-04-25 08:30] VITALS: BP 123/67
--- NOTE | 2019-04-25 08:30 | NUR ---
A.M. ASSESSMENT COMPLETED. VSS.
--- NOTE | 2019-04-25 09:04 | Postpartum Progress Note ---
Post Op Patient seen and examined on POD 1 but no note written Post-operative Day #2 s/p RLTCS Subjective: Patient is without complaints. Ambulating, voiding after parra removed. Tolerating a regular diet without nausea or vomiting. Normal lochia. Pain is well controlled with oral pain medications. Passing flatus. [] feeding. [] Objective: Laboratory Tests Test 04/23/19 06:18 04/23/19 06:42 04/24/19 06:00 Range/Units Urine Color YELLOW Urine Clarity CLEAR Urine pH 6.5 5-9 Urine Specific [place] 1.015 L 1.016-1.022 Urine Protein NEGATIVE NEGATIVE Urine Glucose (UA) NEGATIVE NEGATIVE Urine Ketones TRACE H NEGATIVE Urine Nitrite NEGATIVE NEGATIVE Urine Bilirubin NEGATIVE NEGATIVE Urine Urobilinogen 0.2 < = 1.0 MG/DL Urine Leukocyte Esterase NEGATIVE NEGATIVE Urine RBC (Auto) NEGATIVE NEGATIVE Urine RBC NONE /HPF Urine WBC 0-2 /HPF Urine Squamous Epithelial Cells 2-5 /HPF Urine Crystals NONE /LPF Urine Bacteria NEGATIVE /HPF Urine Casts NONE /LPF Urine Mucus NEGATIVE /LPF Urine Culture Indicated NO White Blood Count 14.0 H 16.0 H 4.3-11.0 10^3/uL Red Blood Count 3.81 L 3.38 L 4.35-5.85 10^6/uL Hemoglobin 10.7 L 9.6 L 11.5-16.0 G/DL Hematocrit 33 L 30 L 35-52 % Mean Corpuscular Volume 86 87 80-99 FL Mean Corpuscular Hemoglobin 28 28 25-34 PG Mean Corpuscular Hemoglobin Concent 33 33 32-36 G/DL Red Cell Distribution Width 13.5 13.2 10.0-14.5 % Platelet Count 416 H 391 130-400 10^3/uL Mean Platelet Volume 10.8 H 10.4 7.4-10.4 FL Neutrophils (%) (Auto) 67 69 42-75 % Lymphocytes (%) (Auto) 23 20 12-44 % Monocytes (%) (Auto) 6 7 0-12 % Eosinophils (%) (Auto) 3 3 0-10 % Basophils (%) (Auto) 0 0 0-10 % Neutrophils # (Auto) 9.4 H 11.1 H 1.8-7.8 X 10^3 Lymphocytes # (Auto) 3.2 3.2 1.0-4.0 X 10^3 Monocytes # (Auto) 0.9 1.2 H 0.0-1.0 X 10^3 Eosinophils # (Auto) 0.5 H 0.5 H 0.0-0.3 10^3/uL Basophils # (Auto) 0.1 0.0 0.0-0.1 10^3/uL VS - Last 72 Hours, by Label POS 04/23/19 04/23/19 04/23/19 04/23/19 07:00 07:30 09:00 09:00 Temp 36.8 36.3 36.5 Pulse 81 Resp 18 20 B/P (MAP) 113/50 (71) Pulse Ox 99 99 O2 Delivery Room Air Room Air Room Air 04/23/19 04/23/19 04/23/19 04/23/19 09:17 09:17 09:38 09:38 Temp 36.5 36.4 Resp 20 20 B/P (MAP) 107/63 (78) 107/60 (76) Pulse Ox 99 100 O2 Delivery Room Air Room Air Room Air Room Air 04/23/19 04/23/19 04/23/19 04/23/19 09:47 09:47 10:30 11:06 Temp 36.2 36.8 Pulse 92 Resp 20 20 B/P (MAP) 104/71 (82) 137/65 (89) Pulse Ox 100 98 99 O2 Delivery Room Air Room Air Room Air Room Air 04/23/19 04/23/19 04/23/19 04/23/19 16:57 20:32 20:32 22:56 Temp 37.8 37.1 Pulse 67 79 Resp 16 18 B/P (MAP) 126/69 (88) 118/68 (85) Pulse Ox 98 99 100 O2 Delivery Room Air Room Air Room Air Room Air 04/24/19 04/24/19 04/24/19 04/24/19 00:35 03:55 10:08 16:34 Temp 37.5 37.0 37.6 37.2 Pulse 89 84 77 84 Resp 18 18 18 18 B/P (MAP) 124/68 (86) 126/71 (89) 114/59 (77) 121/59 (79) Pulse Ox 97 96 97 96 O2 Delivery Room Air Room Air Room Air Room Air 11/04/24/19 04/24/19 04/25/19 18:24 19:49 21:47 04:56 Temp 36.8 36.4 Pulse 84 71 Resp 18 16 B/P (MAP) 137/68 (91) 116/72 (87) Pulse Ox 96 98 98 98 O2 Delivery Room Air Room Air Room Air Room Air Vital Sign - Last 24 Hours 04/24/19 04/24/19 04/24/19 04/24/19 10:08 16:34 18:24 19:49 Temp 37.6 37.2 Pulse 77 84 Resp 18 18 B/P (MAP) 114/59 (77) 121/59 (79) Pulse Ox 97 96 96 98 O2 Delivery Room Air Room Air Room Air Room Air 04/24/19 04/25/19 21:47 04:56 Temp 36.8 36.4 Pulse 84 71 Resp 18 16 B/P (MAP) 137/68 (91) 116/72 (87) Pulse Ox 98 98 O2 Delivery Room Air Room Air Intake and Output 04/24/19 04/24/19 04/25/19 15:00 23:00 07:00 Intake Total 600 ml Balance 600 ml Physical Exam: General - Alert and oriented, no apparent distress Abdomen - Soft, appropriately tender to palpation, non-distended, fundus firm at umbilicus Incision - clean, dry and intact; no erythema or induration, no drainage Extremities - no edema, negative Lionel's bilaterally Assessment: [] post-operative day # [], status post []. Recovering well, hemodynamically stable Acute blood loss anemia [] Plan: Routine post-operative care. Encourage breast feeding. Encourage ambulation. VTE prophylaxis: SCDs. Ferrous sulfate supplementation. Plan for discharge [] Vitals - Labs Vital Signs - I&O Vital Signs Date Time Temp Pulse Resp B/P (MAP) Pulse Ox O2 Delivery O2 Flow Rate FiO2 04/25/19 04:56 36.4 71 16 116/72 (87) 98 Room Air 04/24/19 21:47 36.8 84 18 137/68 (91) 98 Room Air 04/24/19 19:49 98 Room Air 04/24/19 18:24 96 Room Air 04/24/19 16:34 37.2 84 18 121/59 (79) 96 Room Air 04/24/19 10:08 37.6 77 18 114/59 (77 97 Room Air I & O 04/25/19 07:00 Intake Total 600 ml Balance 600 ml Labs Microbiology 04/23/19 MRSA Screen - Final, Complete MRSA not isolated NICOLETTE BRANTLEY DO Apr 25, 2019 09:04 POS
[2019-04-25] MEDS ORDERED: OXC5T PO (09:05)
[2019-04-25] MEDS ORDERED: IBUP-844 PO (09:05)
[2019-04-25] MEDS ORDERED: DOCU100C37 PO (09:05)
[2019-04-25] MEDS ORDERED: ACET-77 PO (09:05)
--- NOTE | 2019-04-25 09:07 | Short Stay Summary ---
Discharge Summary Hospital Course Was the Problem List Reviewed?: Yes Final Diagnosis: Previous section Hospital Course Date of Admission: Apr 23, 2019 at 06:04 Admission Diagnosis : Family Physician/Provider: No,Local Physician Date of Discharge: 04/25/19 Discharge Diagnosis: [ ] Hospital Course: [ ] Labs and Pending Lab Test: Microbiology 04/23/19 MRSA Screen - Final, Complete MRSA not isolated Home Meds Active Reported Iron (Ferrous Sulfate) 325 Mg Tablet 325 Mg PO DAILY Formula ( Vit W-Ca,Fe,FA(<1 mg)) 1 Each Tablet 1 Each PO DAILY Discharge Instructions Discharge Diet: No Restrictions Activity as Tolerated: Yes (no driving for 1 week, nothing in vagina for 6 weeks, no lifting over 25 lbs) Pneumonia Vaccine Order Indica: Yes Discharge Physical Examination General Appearance: Alert HEENT: Atraumatic Respiratory: Clear to Auscultation, Normal Air Movement Cardiovascular: Regular Rate, Normal S1, Normal S2 Abdominal: Normal Bowel Sounds, Other (Inc C/D./I) Extremities: Other (tr edema) Allergies: Coded Allergies: Penicillins (Unverified Allergy, Unknown, 04/18/19) cefaclor (Unverified Allergy, Unknown, 04/18/19) Discharge Summary Date of Admission Apr 23, 2019 at 06:04 Date of Discharge Discharge Date: Apr 25, 2019 Admission Diagnosis Repeat section Acute blood loss on chronic iron deficient anemia Consults/Procedures Procedures repeat cesarena section Clinical Quality Measures DVT/VTE Risk/Contraindication: Risk Factor Score Per Nursin RFS Level Per Nursing on Admit: 1=Low/No VTE PPX NICOLETTE BRANTLEY DO Apr 25, 2019 09:07 POS
--- NOTE | 2019-04-25 09:08 | Discharge Inst-Women's Service ---
Discharge Inst-Women's Serv Depart Medication/Instructions New, Converted or Re-Newed RX: RX on Chart Problems Reviewed?: Yes Consults/Follow Up Additional Follow Up: Yes (1 week for incision check with [facility]. 6 weeks for PP exam) Activity Activity: Activity as Tolerated Driving Instructions: No Driving for 1 Week NO SMOKING: NO SMOKING Nothing Inside Vagina: No Douching, No [place], No Tampons Diet Discharge Diet: No Restrictions Symptoms to Report to : Bleeding Excessive, Pain Increased, Fever Over 101 Degrees F, Vaginal Bleeding Increase, Cramps in Feet or Legs, Vaginal Discharge Foul For Any Problems or Questions: Contact Your Physician Skin/Wound Care Infection Signs and Symptoms: Increased Redness, Foul Odor of Wound, Increased Drainage, Skin Itchy or Has a Rash, Increased Swelling, Temperature Above 101 F Operative Area Clean and Dry: Keep Incision Clean/Dry Stitches/[place]/Dermabond: Dermabond Bathing Instructions: NICOLETTE Cronin DO Apr 25, 2019 09:08 POS
[2019-04-25] MEDS: DOCUSATE SODIUM 100 MG (COLACE) CAP PO SCH (09:19)
[2019-04-25] MEDS: FERROUS SULF 325 MG (IRON) TAB PO SCH (09:19)
[2019-04-25] MEDS: ACETAMINOPHEN 500 MG TAB (TYLENOL) PO SCH (09:19)
--- NOTE | 2019-04-25 09:20 | NUR ---
DR. BRANTLEY HERE TO SEE PT. PLAN FOR DISCHARGE.
--- NOTE | 2019-04-25 11:30 | NUR ---
DISCHARGE INSTRUCTIONS REVIEWED WITH COPY TO PT. RXS GIVEN. STATES UNDERSTANDING OF ALL INSTRUCTIONS AND NEED TO F/U SCHEDULED AND NEEDED.
[2019-04-25 11:45] VITALS: BP 123/67
--- NOTE | 2019-04-25 11:45 | NUR ---
DISMISSED AMB FROM [facility] WITH IN STABLE CONDITION TO FAMILY CAR ACC BY GAUDENCIO DONOVAN.
== END 2019-04-25 11:45 | disposition home or self-care (01) | DRG 787 ==
LOC: LDRP 06:04
PROVIDERS: ADMIT Obstetrics & Gynecology; ATTEND Obstetrics & Gynecology
PROC: 10D00Z1 Extraction of Products of Conception, Low, Open Approach (ICD-10-PCS; principal; 2019-04-23 07:49)
DX: O34.211 Maternal care for low transverse scar from previous cesarean delivery (principal); D62 Acute posthemorrhagic anemia; O99.334 Smoking (tobacco) complicating childbirth; F17.210 Nicotine dependence, cigarettes, uncomplicated; O99.62 Diseases of the digestive system complicating childbirth; K21.9 Gastro-esophageal reflux disease without esophagitis; O99.02 Anemia complicating childbirth; Z37.0 Single live birth; Z3A.39 39 weeks gestation of pregnancy; Z28.21 Immunization not carried out because of patient refusal
CPT/HCPCS: 36415; 81000; 85025; 86850; 86900; 86901; 87081; 94640; 94664; 94760